=== PATIENT | female | born 1985 | race Caucasian/White ===

== ENCOUNTER → 2019-07-14 | Outpatient (CLI) | payer BC ==
[2019-07-14] VITALS (31 sets, daily range): BP systolic 82–118; BP diastolic 36–81
--- NOTE | 2019-07-16 14:00 | PROC ---
[address] [address] PROCEDURE REPORT Name: BRYSON ROSENBAUM Room: [facility]#: [id number] Admission: 07/14/19 Attend Phys: Iftikhar Rosales MD, F Discharge: Date of : 87 Report #: [id number] THIS REPORT FOR: //name// CC: Iftikhar Rodas DATE OF SERVICE: 07/14/2019 TITLE OF PROCEDURE: Head upright tilt-table testing using sublingual nitroglycerin. INDICATIONS: The patient underwent a head upright tilt-table test to evaluate for possible cause of syncope. PROCEDURE: Head upright tilt-table testing was performed with the patient in the fasting state. The patient was placed supine on the tilt table and ECG monitoring was performed throughout the study. At baseline, the patient had a blood pressure of 106/76, pulse of 80 and she was in sinus rhythm. The patient was then placed in the head upright position on the tilt table. The patient denied any complaints at this time and she remained in a sinus rhythm. Thirty minutes after in the supine position on the tilt table, the patient had a blood pressure of 108/74 with a pulse of 94 and she was in sinus rhythm. The patient was then given nitroglycerin 0.4 sublingually. After 20 minutes, the patient complained of feeling flushed. She then became diaphoretic and had a brief loss of consciousness. The patient was placed back into the supine position. At this time, the patient had a blood pressure of 90/60. She had a brief episode of sinus tachycardia at 122 beats per minute, but after placing back into the supine position, the patient was noted to have sinus bradycardia at 46 beats per minute. The patient's symptoms gradually resolved, but 20 minutes following nitroglycerin, the patient continued to have a blood pressure only of 82/40 with a pulse of 62. Thirty minutes after the nitroglycerin, the patient had a blood pressure of 142 and a pulse 58 and she was asymptomatic. IMPRESSION: 1. Positive head upright tilt-table testing using sublingual nitroglycerin for neurocardiogenic syncope. 2. The patient had a predominant vasodepressor response following sublingual nitroglycerin. There was no significant cardioinhibitory response noted. <ELECTRONICALLY SIGNED> By: Iftikhar Rosales MD, FACC 07/16/19 [id number] Rosales MD, FACC /nt
== END | disposition home or self-care (01) ==
LOC: M.CL 10:22
DX: R55 Syncope and collapse (principal)